=== PATIENT | female | born 1985 | race Hispanic/Latino ===

== ENCOUNTER 2018-08-08 19:19 | Emergency (ER) | payer BC ==
[2018-08-08] MEDS ORDERED: Sodium Chloride 0.9% 1,000 ML IV STA (20:01)
--- NOTE | 2018-08-08 20:16 | ED PDOC ---
HPI: Chest Pain Time Seen by Provider: 08/08/18 19:40 Chief Complaint (Nursing): Chest Pain Chief Complaint (Provider): Chest Pain History Per: Patient History/Exam Limitations: no limitations Onset/Duration Of Symptoms: Days (x1 week) Associated Symptoms: Nausea Additional Complaint(s): Toyin Antunez is a 33 year old [place] female with a past medical history of rheumatoid arthritis, anxiety and migraines, who presents to the emergency department complaining of chest pain, onset x1 week. Patient states on 07/31/18 she was having chest pain associated with migraine headaches. She went to a local urgent care and they referred her to [facility] for elevated BP. They performed a CT of the head and was informed that it was normal and got IV reglan and Toradol. After feeling better she was discharged. However, she was never given any guidance on her blood pressure issue or any work up for her chest pain. Today, she went to her PMD, who did an EKG and was concerned for her elevated BP. He referred her to this ED. On arrival, she is not complaining of any headac he but she does have a sensation of chest tightness that radiates to her back, diffuse bodyache, tremors, and dizziness but denies feeling any fever, cough, nausea or vomiting. Patient further reported that she was on imitrex a couple of years ago but no longer has a Rx for it. PMD: Dr. Perry Past Medical History Reviewed: Historical Data, Nursing Documentation, Vital Signs Vital Signs: Last Vital Signs Temp 97.9 F 08/08/18 19:28 Pulse 78 08/08/18 19:28 Resp 18 08/08/18 19:28 BP 156/110 H 08/08/18 19:28 Pulse Ox 99 08/08/18 19:28 - Medical History PMH: Anxiety, Migraine, Rheumatoid Arthritis - Surgical History Surgical History: (x1) Other surgeries: Breast implants and revision of breast implants - Family History Family History: States: Unknown Family Hx - Social History Current smoker - smoking cessation education provided: Yes (smokes a vape) - Allergies Allergies/Adverse Reactions: Allergies Allergy/AdvReac Type Severity Reaction Status Date / Time No Known Allergies Allergy Verified 08/08/18 19:34 Review of Systems ROS Statement: Except As Marked, All Systems Reviewed And Found Negative Constitutional: Positive for: Other (diffuse body ache). Negative for: Fever Cardiovascular: Positive for: Chest Pain Respiratory: Negative for: Cough Gastrointestinal: Negative for: Nausea, Vomiting Neurological: Positive for: Headache, Dizziness, Other (tremors) Physical Exam - Reviewed Nursing Documentation Reviewed: Yes Vital Signs Reviewed: Yes - Physical Exam Appears: Positive for: Non-toxic, No Acute Distress Head Exam: Positive for: ATRAUMATIC, NORMOCEPHALIC Skin: Positive for: Normal Color, Warm, Dry Eye Exam: Positive for: Normal appearance, EOMI, PERRL ENT: Positive for: Normal ENT Inspection Neck: Positive for: Normal, Painless ROM, Supple Cardiovascular/Chest: Positive for: Tachycardia Respiratory: Positive for: Normal Breath Sounds. Negative for: Respiratory Distress Gastrointestinal/Abdominal: Positive for: Normal Exam, Soft. Negative for: Tenderness Back: Positive for: Normal Inspection. Negative for: L CVA Tenderness, R CVA Tenderness, Vertebral Tenderness Extremity: Positive for: Normal ROM. Negative for: Pedal Edema, Deformity Neurologic/Psych: Positive for: Alert, Oriented. Negative for: Motor/Sensory Deficits - Laboratory Results Result Diagrams: 08/08/18 20:10 08/08/18 20:10 - ECG O2 Sat by Pulse Oximetry: 99 (RA) Pulse Ox Interpretation: Normal Medical Decision Making Medical Decision Making: ; 1957 Impression: 33 year old [place] female with chest pain and elevated blood pressure Plan: --CT angio chest PE protocol --CMP --Creatine Phosphokinase --Magnesium --Troponin I --TSH --ED Urine --CBC with differential --ESR --PT --PTT --Sodium chloride 1,000 ml --Heplock Insertion --[place] --Influenza a B 2216 CTA FINDINGS: Bilateral breast prostheses. PULMONARY ARTERIES No evidence of central or segmental pulmonary embolism is seen. AORTA There is no evidence for aneurysm or dissection of the thoracic aorta. LUNGS The lungs appear clear. PLEURAL SPACES No pneumothorax evident. No pleural effusions. HEART Normal heart size. No significant pericardial effusion. LYMPH NODES No lymphadenopathy is evident. BONES No focal osseous abnormality or acute fracture. UPPER ABDOMEN Images of the upper abdomen are unremarkable. IMPRESSION: Unremarkable pulmonary embolism protocol CTA of the chest. 2232 Patient's labs have been reviewed and show no abnormalities, CTA is normal. Patient's blood pressure has improved and she is stable for discharge. Instructed to follow up with Dr. Perry and advised for further work up as outpatient as needed. Diagnosis is atypical chest pain. Scribe Attestation: Documented by Antoine Askew, acting as a scribe for Asim Park MD. Provider Scribe Attestation: All medical record entries made by the Scribe were at my direction and personally dictated by me. I have reviewed the chart and agree that the record accurately reflects my personal performance of the history, physical exam, medical decision making, and the department course for this patient. I have also personally directed, reviewed, and agree with the discharge instructions and disposition. Disposition - Clinical Impression Clinical Impression: Atypical chest pain - Disposition Referrals: Dustin Allen MD [Staff Provider] - Disposition Time: 22:33 Condition: STABLE Instructions: Chest Pain That Is Not Caused by the Heart (DC) Forms: [employer] (Nauruan)
[2018-08-08 20:28] LABS: BASO # 0.1 K/uL (0.0-0.2); BASO % 0.9 % (0.0-2.0); EOS % 0.6 % (0.0-4.0); HEMOGLOBIN 11.3 g/dL (12.0-16.0); LYMPH # 1.8 K/uL (1.0-4.3); MEAN CELL VOLUME 79.1 fl (81.0-99.0); MEAN CORPUSCULAR HEMOGLOBIN 25.5 pg (27.0-31.0); MEAN CORPUSCULAR HGB CONC 32.2 g/dL (33.0-37.0); MEAN PLATELET VOLUME 8.2 fl (7.2-11.7); MONO # 0.4 K/uL (0.0-0.8); MONO % 4.9 % (0.0-10.0); NEUT # 5.1 K/uL (1.8-7.0); NEUT % 68.6 % (50.0-75.0); RBC 4.43 Mil/uL (3.80-5.20); RED CELL DISTRIBUTION WIDTH 16.2 % (11.5-14.5); WHITE BLOOD COUNT 7.4 K/uL (4.8-10.8)
[2018-08-08 20:30] LABS: PROTHROMBIN TIME 11.4 Seconds (9.8-13.1)
[2018-08-08 20:32] LABS: PARTIAL THROMBOPLASTIN TIME 34.8 Seconds (25.6-37.1)
[2018-08-08 20:41] LABS: ALB/GLOB RATIO 1.2 (1.0-2.1); ALBUMIN 4.4 g/dL (3.5-5.0); ALT/SGPT 50 U/L (9-52); AST/SGOT 50 U/L (14-36); BLOOD UREA NITROGEN 13 mg/dl (7-17); CALCIUM 9.9 mg/dL (8.4-10.2); GFR NON-AFRICAN AMERICAN > 60
[2018-08-08] MEDS ORDERED: Sodium Chloride 0.9% 50 ML IV ONE (21:32)
[2018-08-08] MEDS ORDERED: Iodixanol 320 MG/ML 100 ML BOTTLE IV ONE (21:32)
[2018-08-08 23:15] VITALS: BP 143/98; PULSE 97; RESP 17; TEMP 98.3; O2SAT 100
--- NOTE | 2018-08-09 11:30 | CT ---
Date of service: 08/08/2018 PROCEDURE: CT Chest with contrast (Pulmonary Angiogram) HISTORY: chest pain r/o PE COMPARISON: None available. TECHNIQUE: Axial computed tomography images were obtained of the chest in the pulmonary arterial phase of enhancement. Coronal and sagittal reformatted images were created and reviewed. Intravenous contrast dose: 95 cc Visipaque 320. Mean Hounsfield value in the main pulmonary artery: 280.12 Radiation dose: Total exam DLP = 618.24 mGy-cm. This CT exam was performed using one or more of the following dose reduction techniques: Automated exposure control, adjustment of the mA and/or kV according to patient size, and/or use of iterative reconstruction technique. FINDINGS: PULMONARY ARTERIES: There is no evidence of acute pulmonary thromboembolic disease. There is focal septation or stranding identified in the main pulmonary artery extending to the left pulmonary artery. This likely represents artifact. AORTA: No acute findings. No thoracic aortic aneurysm. No atherosclerotic calcification or mural plaque present. LUNGS: Unremarkable. No nodule, mass or pulmonary consolidation. PLEURAL SPACES: Unremarkable. No effusion or pneumothorax. HEART: Unremarkable. No cardiomegaly. No significant pericardial effusion. LYMPH NODES: No lymphadenopathy. BONES, CHEST WALL: Unremarkable. No fracture or destructive lesion OTHER FINDINGS: Unremarkable. IMPRESSION: Unremarkable CT pulmonary angiogram. No pulmonary embolus. Concordant findings (preliminary report) provided by [facility].
== END 2018-08-08 22:59 | disposition home or self-care (01) ==
LOC: H.ER 19:19
DX: R07.89 Other chest pain (principal)
CPT/HCPCS: 71275; 80053; 81025; 82550; 83735; 84443; 84484; 85025; 85610; 85651; 85730; 86308; 87804; 96360; 99285; J7030; Q9967